=== PATIENT | male | born 1965 | race Two or more races ===

== ENCOUNTER 2017-09-21 09:34 | Emergency (ER) | payer BC ==
[2017-09-21] MEDS: DEXAMETHASONE SOD PHOS 4 MG/ML VIAL IM (10:18)
[2017-09-21] MEDS: methylPREDNISolone ACETATE 80 MG/ML VIAL. IM (10:19)
[2017-09-21] MEDS: FAMOTIDINE 20 MG TABLET. PO (11:17)
[2017-09-21] MEDS: diphenhydrAMINE HCL 25 MG CAPSULE PO (11:18)
== END 2017-09-21 11:20 | disposition home or self-care (01) ==
LOC: ER 09:34
DX: L25.9 Unspecified contact dermatitis, unspecified cause (principal); F17.210 Nicotine dependence, cigarettes, uncomplicated
CPT/HCPCS: 96372; 99284; J1040; J1100; Q0163